=== PATIENT | female | born 1960 | race Caucasian/White ===

== ENCOUNTER → 2020-03-09 14:45 | Outpatient (CLI) | payer OTHER, SELFPAY ==
[2020-03-14 00:13] LABS: Chocolate <0.10 kU/L (Class 0); Clam <0.10 kU/L (Class 0); Codfish <0.10 kU/L (Class 0); Corn <0.10 kU/L (Class 0); Egg, White <0.10 kU/L (Class 0); Milk (Cow) <0.10 kU/L (Class 0); Peanut <0.10 kU/L (Class 0); SCALLOP <0.10 kU/L (Class 0); SESAME SEED <0.10 kU/L (Class 0); Shrimp <0.10 kU/L (Class 0); Soybean <0.10 kU/L (Class 0); Walnut, (Food) <0.10 kU/L (Class 0); Wheat <0.10 kU/L (Class 0)
[2020-03-14 10:13] LABS: Oat <0.10 kU/L (Class 0)
== END ==
PROVIDERS: PCP Internal Medicine; Visit Provider Otolaryngology
DX: T78.40XA Allergy, unspecified, initial encounter (principal)
CPT/HCPCS: 36415; 86003